=== PATIENT | female | born 1975 | race American Indian/Alaskan Native ===

== ENCOUNTER 2016-04-09 16:33 | Emergency (ER) | payer MEDICAID ==
[2016-04-09 16:50] VITALS: BP 113/69
--- NOTE | 2016-04-09 20:13 | Emergency Department Report ---
- General Chief Complaint: Upper Respiratory Infection Stated Complaint: CHEST PAIN/14WKS Time Seen by Provider: 04/09/16 19:40 Source: patient Mode of arrival: Ambulatory Limitations: No Limitations - History of Present Illness Initial Comments: 40-year-old female past medical history none presents with complaint of 3 days of cough runny nose sore throat and body aches. States cough is dry. Patient states she works with multiple sick contacts with similar symptoms. Patient states she has upper airway congestion denies any nausea vomiting no recent travel, able to tolerate by mouth without any difficulty. Patient states she is approximately 14 weeks . Company by . Patient is awake alert and oriented 3 coughing but not in acute distress otherwise. Patient denies any palpitations chest pain or significant shortness of breath only feels slightly short of breath when she is coughing. States she had subjective fever at home yesterday. MD Complaint: cough, rhinorrhea, nasal congestion Onset/Timin -: days(s) Severity: mild Improves With: nothing Worsens With: nothing Context: sick contacts Associated Symptoms: fever, rhinorrhea, nasal congestion, cough - Related Data Previous Rx's Medication Instructions Recorded Last Taken Type HYDROcodone/APAP 5-325 [[place] 1 - 2 each PO Q6HR PRN #14 tablet 11/17/15 Unknown Rx 5/325] ALBUTEROL Inhaler [ProAir HFA 2 puff IH QID PRN #1 inhalation 04/09/16 Unknown Rx Inhaler] Acetaminophen [Acetaminophen TAB] 500 mg PO Q6HR PRN #30 tablet 04/09/16 Unknown Rx Azithromycin [Zithromax Z-CHLOE] 250 mg PO QDAY #6 tablet 04/09/16 Unknown Rx Oseltamivir [Tamiflu] 75 mg PO BID #10 cap 04/09/16 Unknown Rx guaiFENesin DM [Robitussin Dm] 10 ml PO Q6HR PRN #1 bottle 04/09/16 Unknown Rx Allergies Allergy/AdvReac Type Severity Reaction Status Date / Time No Known Allergies Allergy Verified 11/16/15 03:10 ED Review of Systems ROS: Stated complaint: CHEST PAIN/14WKS Other details as noted in HPI ED Past Medical Hx - Past Medical History Hx Kidney Stones: Yes - Surgical History Past Surgical History?: No - Social History Smoking Status: Never Smoker Substance Use Type: None - Medications Home Medications: Home Medications Medication Instructions Recorded Confirmed Last Taken Type HYDROcodone/APAP 5-325 [[place] 1 - 2 each PO Q6HR PRN #14 tablet 11/17/15 Unknown Rx 5/325] ALBUTEROL Inhaler [ProAir HFA 2 puff IH QID PRN #1 inhalation 04/09/16 Unknown Rx Inhaler] Acetaminophen [Acetaminophen TAB] 500 mg PO Q6HR PRN #30 tablet 04/09/16 Unknown Rx Azithromycin [Zithromax Z-CHLOE] 250 mg PO QDAY #6 tablet 04/09/16 Unknown Rx Oseltamivir [Tamiflu] 75 mg PO BID #10 cap 04/09/16 Unknown Rx guaiFENesin DM [Robitussin Dm] 10 ml PO Q6HR PRN #1 bottle 04/09/16 Unknown Rx ED Physical Exam - General Limitations: No Limitations General appearance: alert, in no apparent distress - Head Head exam: Present: atraumatic, normocephalic - Eye Eye exam: Present: normal appearance, PERRL, EOMI - ENT ENT exam: Present: mucous membranes moist - Neck Neck exam: Present: normal inspection - Respiratory Respiratory exam: Present: normal lung sounds bilaterally. Absent: respiratory distress - Cardiovascular Cardiovascular Exam: Present: regular rate, normal rhythm. Absent: systolic murmur, diastolic murmur, rubs, gallop - GI/Abdominal GI/Abdominal exam: Present: soft, normal bowel sounds - Extremities Exam Extremities exam: Present: normal inspection - Back Exam Back exam: Present: normal inspection - Neurological Exam Neurological exam: Present: alert, oriented X3 - Psychiatric Psychiatric exam: Present: normal affect, normal mood - Skin Skin exam: Present: warm, dry, intact, normal color. Absent: rash ED Course Vital Signs 04/09/16 16:45 Temperature 98.5 F Pulse Rate 97 H Respiratory 16 Rate Blood Pressure 113/69 O2 Sat by Pulse 100 Oximetry ED Medical Decision Making - Medical Decision Making A/P: Flulike illness, cold symptoms, URI 1-as patient is currently approximately 14 weeks with flulike symptoms we'll treat empirically with Tamiflu as per CDC guidelines and recommendations https://www.cdc.gov/flu/antivirals/whatyoushould.htm 2-with Robitussin and DM is safe to use during we'll prescribe, albuterol inhaler, extra strength Tylenol when necessary 3-follow up with primary care doctor 4-patient nontoxic appearing able tolerate by mouth temperature 99.9 Fahrenheit oral, heart rate 79 Critical care attestation.: If time is entered above; I have spent that time in minutes in the direct care of this critically ill patient, excluding procedure time. ED Disposition Clinical Impression: Flu-like symptoms Upper respiratory infection Qualifiers: URI type: unspecified URI Qualified Code(s): J06.9 - Acute upper respiratory infection, unspecified Disposition: DISCHARGED TO HOME OR SELFCARE Is pt being admited?: No Does the pt Need Aspirin: No Condition: Stable Instructions: Upper Respiratory Infection (ED), Cold Symptoms (ED) Prescriptions: Acetaminophen [Acetaminophen TAB] 500 mg PO Q6HR PRN #30 tablet PRN Reason: Sore Throat ALBUTEROL Inhaler [ProAir HFA Inhaler] 2 puff IH QID PRN #1 inhalation PRN Reason: Shortness Of Breath Azithromycin [Zithromax Z-CHLOE] 250 mg PO QDAY #6 tablet guaiFENesin DM [Robitussin Dm] 10 ml PO Q6HR PRN #1 bottle PRN Reason: Cough Oseltamivir [Tamiflu] 75 mg PO BID #10 cap Referrals: CRICKET BECK MD [Primary Care Provider] - 3-5 Days JOHN CURIEL MD [Staff Physician] - 3-5 Days Forms: Accompanied Note, Work/School Release Form(ED) Time of Disposition: 20:19
== END 2016-04-09 20:40 | disposition home or self-care (01) ==
LOC: ED 16:33
DX: O99.511 Diseases of the respiratory system complicating pregnancy, first trimester (principal); J06.9 Acute upper respiratory infection, unspecified; Z3A.14 14 weeks gestation of pregnancy
CPT/HCPCS: 87400; 99282

== ENCOUNTER 2017-03-16 11:45 | Emergency (ER) | payer MEDICAID ==
[2017-03-16] MEDS ORDERED: NORCO 5/325 PO ONE (12:48)
[2017-03-16] MEDS ORDERED: NACL 0.9% 1000 ML 1,000 ML IV ONE (12:48)
[2017-03-16] MEDS ORDERED: ZOFRAN ODT PO ONE (12:49)
[2017-03-16 13:12] LABS: Basophils % (Auto) 0.6 % (0.0-1.8); Eosinophils # (Auto) 0.1 K/mm3 (0.0-0.4); Eosinophils % (Auto) 2.3 % (0.0-4.3); Hematocrit 38.3 % (30.3-42.9); Hemoglobin 12.5 gm/dl (10.1-14.3); Lymphocytes # (Auto) 1.5 K/mm3 (1.2-5.4); Lymphocytes % (Auto) 33.5 % (13.4-35.0); Mean Corpuscular HGB Conc 33 % (30-34); Mean Corpuscular Hemoglobin 30 pg (28-32); Mean Corpuscular Volume 92 fl (79-97); Monocytes # (Auto) 0.3 K/mm3 (0.0-0.8); Monocytes % (Auto) 5.8 % (0.0-7.3); Platelet Count 321 K/mm3 (140-440); Red Blood Count 4.17 M/mm3 (3.65-5.03); Red Cell Distribution Width 15.1 % (13.2-15.2)
[2017-03-16 13:21] LABS: HCG Qualitative,Urine Negative (Negative)
[2017-03-16 13:22] LABS: Bilirubin,Urine NEG (Negative); Blood,Urine LG (Negative); Color,Urine Yellow (Yellow); Mucus,Urine FEW /HPF; Nitrite,Urine NEG (Negative); Protein,Urine <15 mg/dL mg/dL (Negative); Urobilinogen,Urine < 2.0 mg/dL (<2.0)
[2017-03-16 13:23] LABS: RBC,Urine > 182.0 /HPF (0.0-6.0)
[2017-03-16 13:33] LABS: BUN/Creatinine Ratio 13; Blood Urea Nitrogen 9 mg/dL (7-17); Hemolysis Index 7
--- NOTE | 2017-03-16 13:43 | Emergency Department Report ---
ED Back Pain/Injury HPI - General Chief Complaint: Back Pain/Injury Stated Complaint: BACK PAIN Time Seen by Provider: 03/16/17 12:55 Source: patient Limitations: No Limitations - History of Present Illness Initial Comments: 41-year-old female past medical history pyelonephritis, UTI, obesity, hypertension presents with complaint of 3 weeks of persistent flank pain bilaterally slightly worse on left and right with some associated increased urinary frequency. Patient states that she was given a prescription for Macrobid by her primary care physician within the last week but her symptoms are not improving. Patient denies fevers chills nausea or vomiting. Does complain of slightly abnormal smelling urine and slight increased urinary frequency from baseline. Patient is on day 5 of 7 of Macrobid. Patient is awake alert and oriented 3 accompanied by family member at bedside. Denies chest pain palpitations shortness of breath. Fully lucid and nontoxic appearing. States pain is currently 7 out of 10 slightly worsening left flank. Denies any hematuria. Patient is currently on menstrual period began this week. MD Complaint: back pain Onset/Timin -: week(s) Similar Symptoms Previously: Yes Severity scale (0 -10): 6 Quality: sharp, aching Consistency: intermittent Treatments Prior to Arrival: other medications (macrobid) - Related Data Previous Rx's Medication Instructions Recorded Last Taken Type HYDROcodone/APAP 5-325 [[place] 1 - 2 each PO Q6HR PRN #14 tablet 11/17/15 Unknown Rx 5/325] ALBUTEROL Inhaler [ProAir HFA 2 puff IH QID PRN #1 inhalation 04/09/16 Unknown Rx Inhaler] Acetaminophen [Acetaminophen TAB] 500 mg PO Q6HR PRN #30 tablet 04/09/16 Unknown Rx Azithromycin [Zithromax Z-CHLOE] 250 mg PO QDAY #6 tablet 04/09/16 Unknown Rx Oseltamivir [Tamiflu] 75 mg PO BID #10 cap 04/09/16 Unknown Rx guaiFENesin DM [Robitussin Dm] 10 ml PO Q6HR PRN #1 bottle 04/09/16 Unknown Rx Acetaminophen/Codeine [Tylenol 1 tab PO Q6H PRN #12 tab 03/16/17 Unknown Rx /Codeine # 3 tab] Phenazopyridine [Pyridium] 200 mg PO TID #6 tab 03/16/17 Unknown Rx Sulfamethoxazole/Trimethoprim 1 each PO BID #20 tablet 03/16/17 Unknown Rx [Bactrim DS TAB] Allergies Allergy/AdvReac Type Severity Reaction Status Date / Time No Known Allergies Allergy Verified 03/16/17 11:49 ED Review of Systems ROS: Stated complaint: BACK PAIN Other details as noted in HPI Constitutional: denies: chills, fever Eyes: denies: eye pain, eye discharge, vision change ENT: denies: ear pain, throat pain Respiratory: denies: cough, shortness of breath, wheezing Cardiovascular: denies: chest pain, palpitations Endocrine: no symptoms reported Gastrointestinal: denies: abdominal pain, nausea, diarrhea Genitourinary: urgency, dysuria, frequency. denies: discharge Musculoskeletal: back pain (b/l flank pain). denies: joint swelling, arthralgia Skin: denies: rash, lesions Neurological: denies: headache, weakness, paresthesias Psychiatric: denies: anxiety, depression Hematological/Lymphatic: denies: easy bleeding, easy bruising ED Past Medical Hx - Past Medical History Hx Hypertension: Yes Hx Kidney Stones: Yes - Surgical History Additional Surgical History: C/S - Social History Smoking Status: Never Smoker Substance Use Type: None - Medications Home Medications: Home Medications Medication Instructions Recorded Confirmed Last Taken Type HYDROcodone/APAP 5-325 [[place] 1 - 2 each PO Q6HR PRN #14 tablet 11/17/15 Unknown Rx 5/325] ALBUTEROL Inhaler [ProAir HFA 2 puff IH QID PRN #1 inhalation 04/09/16 Unknown Rx Inhaler] Acetaminophen [Acetaminophen TAB] 500 mg PO Q6HR PRN #30 tablet 04/09/16 Unknown Rx Azithromycin [Zithromax Z-CHLOE] 250 mg PO QDAY #6 tablet 04/09/16 Unknown Rx Oseltamivir [Tamiflu] 75 mg PO BID #10 cap 04/09/16 Unknown Rx guaiFENesin DM [Robitussin Dm] 10 ml PO Q6HR PRN #1 bottle 04/09/16 Unknown Rx Acetaminophen/Codeine [Tylenol 1 tab PO Q6H PRN #12 tab 03/16/17 Unknown Rx /Codeine # 3 tab] Phenazopyridine [Pyridium] 200 mg PO TID #6 tab 03/16/17 Unknown Rx Sulfamethoxazole/Trimethoprim 1 each PO BID #20 tablet 03/16/17 Unknown Rx [Bactrim DS TAB] ED Physical Exam - General Limitations: No Limitations General appearance: alert, in no apparent distress - Head Head exam: Present: atraumatic, normocephalic - Eye Eye exam: Present: normal appearance, PERRL, EOMI - ENT ENT exam: Present: mucous membranes moist - Neck Neck exam: Present: normal inspection - Respiratory Respiratory exam: Present: normal lung sounds bilaterally. Absent: respiratory distress - Cardiovascular Cardiovascular Exam: Present: regular rate, normal rhythm. Absent: systolic murmur, diastolic murmur, rubs, gallop - GI/Abdominal GI/Abdominal exam: Present: soft, normal bowel sounds - Extremities Exam Extremities exam: Present: normal inspection - Back Exam Back exam: Present: normal inspection, CVA tenderness (L) (patient does have some left-sided flank tenderness on deep percussion) - Neurological Exam Neurological exam: Present: alert, oriented X3, CN II-XII intact, normal gait - Psychiatric Psychiatric exam: Present: normal affect, normal mood - Skin Skin exam: Present: warm, dry, intact, normal color. Absent: rash ED Course Vital Signs 03/16/17 11:49 Temperature 98.9 F Pulse Rate 90 Respiratory 20 Rate Blood Pressure 128/88 O2 Sat by Pulse 100 Oximetry ED Medical Decision Making - Lab Data Result diagrams: 03/16/17 12:57 03/16/17 12:57 - Medical Decision Making A/P: Possible early pyelonephritis, flank pain, suspected renal colic 1-before I could complete workup patient stated that she had to leave the hospital. I advised her that she could potentially have an obstructing stone or kidney inflammation that I'm trying to determine via result of CAT scan. Patient stated that she must leave. Was awake alert and oriented 3 during this discussion with family member at bedside. Patient signed out AGAINST MEDICAL ADVICE despite my warnings of potential infected kidney stone versus pyelonephritis and possibility of becoming septic without fully evaluated flank pain. 2-initial urinalysis is unremarkable however based on patient's history of pyelonephritis failure of treatment with Macrobid and clinical symptoms I will treat her empirically with Bactrim for suspected pyelonephritis. I advised patient to follow-up with her primary care doctor or to return to the ED as soon as possible for reevaluation. Patient stated she understood my instructions and will follow up as soon as possible. 3-patient's vital signs were stable before she left the ED and tolerating by mouth fluid and food without difficulty. urine culture sent Critical care attestation.: If time is entered above; I have spent that time in minutes in the direct care of this critically ill patient, excluding procedure time. ED Disposition Clinical Impression: Flank pain, Left against medical advice, Suspected urinary tract infection Disposition: LEFT AGAINST MED ADVICE Is pt being admited?: No Does the pt Need Aspirin: No Condition: Stable Instructions: Urinary Tract Infection in Women (ED), Flank Pain (ED) Prescriptions: RX: Acetaminophen/Codeine [Tylenol /Codeine # 3 tab] 1 tab PO Q6H PRN #12 tab PRN Reason: Pain Phenazopyridine [Pyridium] 200 mg PO TID #6 tab Sulfamethoxazole/Trimethoprim [Bactrim DS TAB] 1 each PO BID #20 tablet Referrals: LAINA HENRIQUEZ MD [Staff Physician] - 3-5 Days [facility] [Provider Group] - 3-5 Days Forms: AMA Form, Accompanied Note, Work/School Release Form(ED) Time of Disposition: 16:24
[2017-03-16 16:48] VITALS: BP 121/75
--- NOTE | 2017-03-16 17:55 | Cat Scan Report ---
FINAL REPORT PROCEDURE: CT ABDOMEN PELVIS WO CON TECHNIQUE: Computerized axial tomography of the abdomen and pelvis was performed without intravenous contrast. This study is performed without intravascular contrast material and its sensitivity for abdominal and pelvic pathology, including neoplasms, inflammation, abscess, free fluid, thrombosis, arterial dissection and infarction, is reduced compared with a contrast enhanced study. DLP 2017.19 mGy-cm. HISTORY: Left-sided flank pain. COMPARISON: No prior studies are available for comparison. FINDINGS: Visualized lower thorax: No significant abnormality. Liver: Normal size and attenuation. Spleen: Normal size and attenuation. Gallbladder and biliary system: Normal. Pancreas: Normal. Adrenals: Normal. Kidneys: 11 mm low-attenuation lesion in the midpole of the left kidney. Mild overlying scarring. 2.5 mm calculus near expected location the left mid ureter at the L3 level. There is no left hydronephrosis or hydroureter. Possible punctate left renal calculi. A few 2 mm right renal calculi. GI tract: Normal caliber air-filled appendix. Lymph nodes and mesentery: Normal. Vasculature: Normal. Bladder: Normal. Reproductive organs: Normal. Peritoneum: No free fluid. Musculoskeletal structures: Slight L4-5 disc bulges. Small multilevel osteophytes. Moderate sclerosis about the bilateral sacroiliac joints. Other: Fat filled umbilical hernia. IMPRESSION: 2.5 mm calcification about the expected course of the left mid ureter, felt to be vascular and outside the ureter, although difficult to completely exclude small ureteral calculus. Consider further evaluation including CT urogram if there is continued clinical concern. 2 mm right and possible punctate left renal calculi. No CT evidence of obstruction. Low-attenuation lesion in the midpole of the left kidney, likely cyst. Overlying scarring. Consider confirmation with ultrasound if there is continued clinical concern. Moderate sclerosis of the bilateral sacroiliac joints, consider osteitis condensans ilii or sacroiliitis. Fat filled umbilical hernia.
== END 2017-03-16 16:46 | disposition left against medical advice (07) ==
LOC: ED 11:45
DX: R10.9 Unspecified abdominal pain (principal); I10 Essential (primary) hypertension
CPT/HCPCS: 36415; 74176; 80048; 81001; 81025; 82140; 82550; 85025; 87086; Q0162

== ENCOUNTER 2017-07-24 19:38 | Emergency (ER) | payer MEDICAID, OTHER ==
[2017-07-24] MEDS ORDERED: ASPIRIN PO ONE (20:13)
[2017-07-24 20:56] LABS: Basophils # (Auto) 0.1 K/mm3 (0.0-0.1); Basophils % (Auto) 1.6 % (0.0-1.8); Eosinophils # (Auto) 0.1 K/mm3 (0.0-0.4); Eosinophils % (Auto) 1.3 % (0.0-4.3); Hematocrit 33.5 % (30.3-42.9); Hemoglobin 11.1 gm/dl (10.1-14.3); Lymphocytes # (Auto) 2.4 K/mm3 (1.2-5.4); Lymphocytes % (Auto) 35.5 % (13.4-35.0); Mean Corpuscular HGB Conc 33 % (30-34); Mean Corpuscular Hemoglobin 29 pg (28-32); Mean Corpuscular Volume 88 fl (79-97); Monocytes # (Auto) 0.3 K/mm3 (0.0-0.8); Monocytes % (Auto) 3.8 % (0.0-7.3); Platelet Count 344 K/mm3 (140-440); Red Blood Count 3.81 M/mm3 (3.65-5.03); Red Cell Distribution Width 15.3 % (13.2-15.2)
[2017-07-24 21:18] LABS: BUN/Creatinine Ratio 17; Blood Urea Nitrogen 10 mg/dL (7-17); Calcium 8.9 mg/dL (8.4-10.2); Hemolysis Index 4
--- NOTE | 2017-07-25 03:37 | Emergency Department Report ---
ED Chest Pain HPI - General Chief Complaint: Chest Pain Stated Complaint: CHEST PAIN Time Seen by Provider: 07/25/17 03:04 Source: patient Mode of arrival: Ambulatory Limitations: No Limitations - History of Present Illness Initial Comments: Sharp chest pain to left chest began which the shower radiated to the right shoulder came in for evaluation of pain from the right shoulder through the chest worse with movement off from for 2 days denies exertional chest pain denies calf pain or swelling denies risk factors for DVT PE denies shortness of breath perc negatives nonexertional chest pain here for evaluation no tearing pain to the back MD Complaint: chest pain -: Gradual, days(s) Onset: during rest Pain Location: left chest Pain Radiation: RUE Severity: mild, moderate Severity scale (0 -10): 5 Quality: sharp Improves With: nothing Worsens With: nothing, movement Other Symptoms: denies: cough, fever, syncope, rash, acid taste in mouth, leg swelling, palpitations, burping - Related Data On Oral Contraceptives: No Previous Rx's Medication Instructions Recorded Last Taken Type HYDROcodone/APAP 5-325 [[place] 1 - 2 each PO Q6HR PRN #14 tablet 11/17/15 Unknown Rx 5/325] ALBUTEROL Inhaler [ProAir HFA 2 puff IH QID PRN #1 inhalation 04/09/16 Unknown Rx Inhaler] Acetaminophen [Acetaminophen TAB] 500 mg PO Q6HR PRN #30 tablet 04/09/16 Unknown Rx Azithromycin [Zithromax Z-CHLOE] 250 mg PO QDAY #6 tablet 04/09/16 Unknown Rx Oseltamivir [Tamiflu] 75 mg PO BID #10 cap 04/09/16 Unknown Rx guaiFENesin DM [Robitussin Dm] 10 ml PO Q6HR PRN #1 bottle 04/09/16 Unknown Rx Acetaminophen/Codeine [Tylenol 1 tab PO Q6H PRN #12 tab 03/16/17 Unknown Rx /Codeine # 3 tab] Phenazopyridine [Pyridium] 200 mg PO TID #6 tab 03/16/17 Unknown Rx Sulfamethoxazole/Trimethoprim 1 each PO BID #20 tablet 03/16/17 Unknown Rx [Bactrim DS TAB] Allergies Allergy/AdvReac Type Severity Reaction Status Date / Time No Known Allergies Allergy Verified 03/16/17 11:49 Heart Score - HEART Score History: Slightly suspicious EKG: Non-specific Age: < 45 Risk factors: 1-2 risk factors Troponin: < normal limit HEART Score: 2 ED Review of Systems ROS: Stated complaint: CHEST PAIN Other details as noted in HPI Comment: All other systems reviewed and negative Constitutional: denies: diaphoresis, fever, malaise Eyes: denies: eye discharge, vision change ENT: denies: dental pain, hearing loss, epistaxis Respiratory: denies: shortness of breath, SOB with exertion, SOB at rest, stridor Cardiovascular: chest pain. denies: palpitations, dyspnea on exertion, orthopnea, edema, syncope, paroxysmal nocturnal dyspnea Gastrointestinal: denies: abdominal pain, nausea, vomiting, diarrhea, constipation, hematemesis, melena, hematochezia Neurological: denies: numbness, paresthesias, confusion, abnormal gait, vertigo Psychiatric: denies: anxiety, depression, auditory hallucinations, visual hallucinations, homicidal thoughts ED Past Medical Hx - Past Medical History Previous Medical History?: Yes Hx Hypertension: Yes Hx Kidney Stones: Yes - Surgical History Past Surgical History?: Yes Additional Surgical History: C/S - Social History Smoking Status: Never Smoker Substance Use Type: None - Medications Home Medications: Home Medications Medication Instructions Recorded Confirmed Last Taken Type HYDROcodone/APAP 5-325 [[place] 1 - 2 each PO Q6HR PRN #14 tablet 11/17/15 Unknown Rx 5/325] ALBUTEROL Inhaler [ProAir HFA 2 puff IH QID PRN #1 inhalation 04/09/16 Unknown Rx Inhaler] Acetaminophen [Acetaminophen TAB] 500 mg PO Q6HR PRN #30 tablet 04/09/16 Unknown Rx Azithromycin [Zithromax Z-CHLOE] 250 mg PO QDAY #6 tablet 04/09/16 Unknown Rx Oseltamivir [Tamiflu] 75 mg PO BID #10 cap 04/09/16 Unknown Rx guaiFENesin DM [Robitussin Dm] 10 ml PO Q6HR PRN #1 bottle 04/09/16 Unknown Rx Acetaminophen/Codeine [Tylenol 1 tab PO Q6H PRN #12 tab 03/16/17 Unknown Rx /Codeine # 3 tab] Phenazopyridine [Pyridium] 200 mg PO TID #6 tab 03/16/17 Unknown Rx Sulfamethoxazole/Trimethoprim 1 each PO BID #20 tablet 03/16/17 Unknown Rx [Bactrim DS TAB] ED Physical Exam - General Limitations: No Limitations General appearance: alert, in no apparent distress, anxious - Head Head exam: Present: atraumatic, normocephalic - Eye Eye exam: Present: normal appearance, PERRL, EOMI - ENT ENT exam: Present: normal exam, normal orophraynx - Neck Neck exam: Present: normal inspection. Absent: tenderness, meningismus - Respiratory Respiratory exam: Present: normal lung sounds bilaterally, chest wall tenderness. Absent: respiratory distress, wheezes, rales, rhonchi, stridor, accessory muscle use, decreased breath sounds, prolonged expiratory - Cardiovascular Cardiovascular Exam: Present: regular rate, normal rhythm. Absent: bradycardia , tachycardia, irregular rhythm, normal heart sounds, systolic murmur, diastolic murmur, rubs, gallop - GI/Abdominal GI/Abdominal exam: Present: soft. Absent: distended, tenderness, guarding, rebound, rigid, mass, pulsatile mass - Extremities Exam Extremities exam: Present: normal inspection, normal capillary refill. Absent: joint swelling, calf tenderness - Back Exam Back exam: Present: normal inspection. Absent: tenderness, CVA tenderness (R), CVA tenderness (L), muscle spasm, paraspinal tenderness, vertebral tenderness - Neurological Exam Neurological exam: Present: alert, oriented X3, CN II-XII intact. Absent: motor sensory deficit - Psychiatric Psychiatric exam: Present: anxious - Skin Skin exam: Present: warm. Absent: cyanosis, diaphoretic, erythema, urticaria, vesicles ED Course Vital Signs 07/24/17 07/24/17 07/25/17 20:10 20:13 02:02 Temperature 98.9 F Pulse Rate 105 H 95 H Respiratory 17 Rate Blood Pressure 131/85 Blood Pressure [Left] O2 Sat by Pulse 99 97 Oximetry 07/25/17 07/25/17 02:14 02:20 Temperature 98.3 F Pulse Rate 89 Respiratory 12 12 Rate Blood Pressure Blood Pressure 116/63 [Left] O2 Sat by Pulse 100 100 Oximetry ROSA score - Rosa Score Age > 65: (0) No Aspirin use within the Past 7 Days: (0) No 3 or more CAD Risk Factors: (0) No 2 or more Angina events in past 24 hrs: (0) No Known CAD with more than 50% Stenosis: (0) No Elevated Cardiac Markers: (0) No ST Deviation Greater than 0.5mm: (0) No ROSA Score: 0 ED Medical Decision Making - Lab Data Result diagrams: 07/24/17 20:33 07/24/17 20:33 - EKG Data -: EKG Interpreted by Me EKG shows normal: sinus rhythm - Medical Decision Making Heart scores is 2, perc score is negative patient does have atypical symptoms negative troponin 2 she did elect refused further evaluation in the ED wants blood work came back I did discuss with her the nature and need for testing of and chest x-ray as well as BNP given her nature of hypertension she is refusing that at this time she says of the blood work is fine just won't go previously noted she did have 2 negative troponins, she is alert and oriented 3 not intoxicated with capacity and is refusing further evaluation of chest pain at this time. She was informed of risk and verbalized understanding of ACS cardiac arrest and and disability she says she'll follow up with regular doctor and return if worse Critical care attestation.: If time is entered above; I have spent that time in minutes in the direct care of this critically ill patient, excluding procedure time. ED Disposition Clinical Impression: Atypical chest pain Disposition: [id number]-07 LEFT AGAINST MED ADVICE Is pt being admited?: No Condition: Stable Instructions: Chest Pain (ED) Referrals: SINCERE YOO MD [Primary Care Provider] - 3-5 Days Forms: AMA Form Time of Disposition: 04:02
[2017-07-25 03:58] VITALS: BP 110/66
== END 2017-07-25 03:58 | disposition left against medical advice (07) ==
LOC: ED 19:38
DX: R07.89 Other chest pain (principal); I10 Essential (primary) hypertension
CPT/HCPCS: 36415; 80048; 83880; 84484; 84703; 85025; 93005; 93010; 99284

== ENCOUNTER 2017-08-30 17:03 | Emergency (ER) | payer MEDICAID ==
[2017-08-30 18:21] LABS: Basophils % (Auto) 0.5 % (0.0-1.8); Eosinophils # (Auto) 0.1 K/mm3 (0.0-0.4); Eosinophils % (Auto) 0.9 % (0.0-4.3); Hematocrit 34.8 % (30.3-42.9); Hemoglobin 11.1 gm/dl (10.1-14.3); Lymphocytes # (Auto) 2.7 K/mm3 (1.2-5.4); Lymphocytes % (Auto) 42.7 % (13.4-35.0); Mean Corpuscular HGB Conc 32 % (30-34); Mean Corpuscular Hemoglobin 28 pg (28-32); Mean Corpuscular Volume 86 fl (79-97); Monocytes # (Auto) 0.3 K/mm3 (0.0-0.8); Monocytes % (Auto) 4.9 % (0.0-7.3); Platelet Count 383 K/mm3 (140-440); Red Blood Count 4.04 M/mm3 (3.65-5.03); Red Cell Distribution Width 15.8 % (13.2-15.2)
[2017-08-30 18:34] LABS: BUN/Creatinine Ratio 17; Blood Urea Nitrogen 10 mg/dL (7-17); Calcium 9.5 mg/dL (8.4-10.2); Hemolysis Index 0
--- NOTE | 2017-08-30 20:57 | XRay Report ---
FINAL REPORT PROCEDURE: XR CHEST ROUTINE 2V TECHNIQUE: PA and lateral chest radiographs were obtained. CPT 90212 HISTORY: Shortness of breath COMPARISON: No prior studies are available for comparison. FINDINGS: Heart: Normal. Mediastinum/Vessels: Normal. Lungs/Pleural space: Normal. Bony thorax: No acute osseous abnormality. Other: IMPRESSION: Normal examination.
--- NOTE | 2017-08-30 21:15 | Emergency Department Report ---
HPI - General Chief Complaint: Dyspnea/Respdistress Time Seen by Provider: 08/30/17 20:21 - HPI HPI: 42-year-old -[place] female who presents to the emergency department with a complaint of a 2 day history of some shortness of breath with a dry cough. The patient also says that she had some bad acid reflux and 5 days ago that caused some midsternal discomfort that was a bad burning sensation but she says that has improved after she started taking Zantac. The patient has a history of bilateral lower external swelling but she says "my legs are always swollen." She has a past medical history of hypertension, borderline diabetes and kidney stones. Her primary care doctor is Dr. Dejesus. No recent travel, immobility, recent surgery, or sick contacts at home. She denies any fever, back pain, nausea, vomiting or diaphoresis. ED Past Medical Hx - Past Medical History Previous Medical History?: Yes Hx Hypertension: Yes Hx Kidney Stones: Yes - Surgical History Past Surgical History?: Yes Additional Surgical History: C/S - Social History Smoking Status: Never Smoker Substance Use Type: Alcohol - Medications Home Medications: Home Medications Medication Instructions Recorded Confirmed Last Taken Type HYDROcodone/APAP 5-325 [[place] 1 - 2 each PO Q6HR PRN #14 tablet 11/17/15 Unknown Rx 5/325] Acetaminophen [Acetaminophen TAB] 500 mg PO Q6HR PRN #30 tablet 04/09/16 Unknown Rx Azithromycin [Zithromax Z-CHLOE] 250 mg PO QDAY #6 tablet 04/09/16 Unknown Rx Oseltamivir [Tamiflu] 75 mg PO BID #10 cap 04/09/16 Unknown Rx guaiFENesin DM [Robitussin Dm] 10 ml PO Q6HR PRN #1 bottle 04/09/16 Unknown Rx Acetaminophen/Codeine [Tylenol 1 tab PO Q6H PRN #12 tab 03/16/17 Unknown Rx /Codeine # 3 tab] Phenazopyridine [Pyridium] 200 mg PO TID #6 tab 03/16/17 Unknown Rx Sulfamethoxazole/Trimethoprim 1 each PO BID #20 tablet 03/16/17 Unknown Rx [Bactrim DS TAB] ALBUTEROL Inhaler [ProAir HFA 2 puff IH QID PRN #1 inhalation 08/30/17 Unknown Rx Inhaler] Benzonatate [Tessalon Perles] 100 mg PO Q8HR PRN #20 capsule 08/30/17 Unknown Rx predniSONE [Deltasone] 20 mg PO QDAY #3 tab 08/30/17 Unknown Rx ED Review of Systems ROS: Stated complaint: SOB Other details as noted in HPI Comment: All other systems reviewed and negative Constitutional: denies: chills, fever Eyes: denies: eye pain, eye discharge, vision change ENT: denies: ear pain, throat pain Respiratory: cough, shortness of breath Cardiovascular: edema (chronic). denies: palpitations Gastrointestinal: denies: abdominal pain, nausea, diarrhea Genitourinary: denies: urgency, dysuria, discharge Musculoskeletal: denies: back pain, joint swelling, arthralgia Skin: denies: rash, lesions Neurological: denies: headache, weakness, paresthesias Physical Exam - Physical Exam Vital Signs: Vital Signs 08/30/17 08/30/17 08/30/17 17:07 20:20 20:21 Temperature 98.7 F 99.0 F Pulse Rate 95 H 84 Respiratory 18 18 18 Rate Blood Pressure 118/73 Blood Pressure 138/78 [Right] O2 Sat by Pulse 100 98 Oximetry ED Course Vital Signs 08/30/17 08/30/17 08/30/17 17:07 20:20 20:21 Temperature 98.7 F 99.0 F Pulse Rate 95 H 84 Respiratory 18 18 18 Rate Blood Pressure 118/73 Blood Pressure 138/78 [Right] O2 Sat by Pulse 100 98 Oximetry ED Medical Decision Making - Lab Data Result diagrams: 08/30/17 17:50 08/30/17 17:50 - EKG Data -: EKG Interpreted by Me EKG shows normal: sinus rhythm, axis (left axis deviation), intervals, QRS complexes, ST-T waves (flattened T waves and isolated T-wave inversion in lead 3 ) Rate: normal - EKG Data When compared to previous EKG there are: no significant change Interpretation: unchanged when compared t (07/24/17) Critical care attestation.: If time is entered above; I have spent that time in minutes in the direct care of this critically ill patient, excluding procedure time. ED Disposition Clinical Impression: Bronchospasm Upper respiratory infection Qualifiers: URI type: unspecified URI Qualified Code(s): J06.9 - Acute upper respiratory infection, unspecified Disposition: DC-01 TO HOME OR SELFCARE Is pt being admited?: No Condition: Stable Instructions: Bronchospasm (ED), Upper Respiratory Infection (ED) Additional Instructions: Please follow-up with your primary care physician in the next few days. Return to the emergency Department with any worsening of her symptoms or any acute distress. Prescriptions: ALBUTEROL Inhaler [ProAir HFA Inhaler] 2 puff IH QID PRN #1 inhalation PRN Reason: Shortness Of Breath Benzonatate [Tessalon Perles] 100 mg PO Q8HR PRN #20 capsule PRN Reason: Cough predniSONE [Deltasone] 20 mg PO QDAY #3 tab Referrals: SINCERE YOO MD [Primary Care Provider] - [facility] Time of Disposition: 22:33
[2017-08-30] MEDS ORDERED: DUONEB *Not for PRN Use IH ONE (21:19)
[2017-08-30] MEDS ORDERED: TESSALON PERLES PO ONE (21:19)
[2017-08-30 21:25] LABS: INR 0.9 (0.87-1.13)
[2017-08-30 21:26] LABS: Partial Thromboplastin Time 31.5 Sec. (24.2-36.6)
[2017-08-30 22:40] VITALS: BP 115/62
== END 2017-08-30 22:45 | disposition home or self-care (01) ==
LOC: ED 17:03
DX: J98.01 Acute bronchospasm (principal); J06.9 Acute upper respiratory infection, unspecified; I10 Essential (primary) hypertension; Z87.442 Personal history of urinary calculi; K21.9 Gastro-esophageal reflux disease without esophagitis
CPT/HCPCS: 36415; 71046; 80048; 83880; 84484; 84703; 85025; 85610; 85730; 93005; 93010

== ENCOUNTER 2017-11-21 17:21 | Emergency (ER) | payer MEDICAID ==
[2017-11-21 17:35] VITALS: BP 103/63
[2017-11-21 19:45] LABS: Bilirubin,Urine NEG (Negative); Blood,Urine LG (Negative); Color,Urine Yellow (Yellow); Mucus,Urine 1+ /HPF; Urobilinogen,Urine < 2.0 mg/dL (<2.0)
--- NOTE | 2017-11-21 22:14 | Ultrasound Report ---
FINAL REPORT PROCEDURE: US OB < = 14 WEEKS FETUS TECHNIQUE: Real-time transabdominal sonography of the uterus, placenta, amniotic fluid, adnexa, and fetus was performed with image documentation. Measurements were obtained to determine age/size. M-mode Doppler was used to document heartbeat. CPT 32243 HISTORY: vaginal bleed with pregancy COMPARISON: No prior studies are available for comparison. FINDINGS: A intrauterine single fluid-filled sac is noted measuring 5.3 millimeters corresponding to 5 weeks and 2 days of gestational age. A pole is not visualized. Uterus measures 11 x 7 x 8 centimeters with an endometrial thickness of 9 millimeters. Right ovary is not visualized. Left ovary measures 2.9 x 1.4 x 2.5 centimeters and appears unremarkable. There is no free fluid in the pelvic cavity. IMPRESSION: A single fluid-filled intrauterine sac may represent a very early viable gestation versus early gestation failure. It corresponds to 5 weeks and 2 days of gestational age. There is no pole. Follow-up studies and clinical correlation are recommended.
--- NOTE | 2017-11-21 22:17 | Ultrasound Report ---
FINAL REPORT PROCEDURE: US OB TRANSVAGINAL TECHNIQUE: Real-time transvaginal sonography of the uterus, placenta, amniotic fluid, adnexa, and fetus was performed with image documentation. Measurements were obtained to determine age/size. M-mode Doppler was used to document heartbeat. CPT 96595 HISTORY: vaginal bleed with pregancy COMPARISON: No prior studies are available for comparison. FINDINGS: This study is limited due to patient's inability to tolerate the transvaginal exam. A intrauterine single fluid-filled sac is noted measuring 5.3 millimeters corresponding to 5 weeks and 2 days of gestational age. A pole is not visualized. Uterus measures 11 x 7 x 8 centimeters with an endometrial thickness of 9 millimeters. Right ovary is not visualized. Left ovary measures 2.9 x 1.4 x 2.5 centimeters and appears unremarkable. There is no free fluid in the pelvic cavity. IMPRESSION: A single fluid-filled intrauterine sac may represent a very early viable gestation versus early gestation failure. It corresponds to 5 weeks and 2 days of gestational age. There is no pole as visualized transabdominally. Transvaginally the patient is unable to tolerate the exam.. Follow-up studies and clinical correlation are recommended.
== END 2017-11-21 23:22 | disposition left against medical advice (07) ==
LOC: ED 17:21
DX: O03.9 Complete or unspecified spontaneous abortion without complication (principal); Z3A.01 Less than 8 weeks gestation of pregnancy; Z53.21 Procedure and treatment not carried out due to patient leaving prior to being seen by health care provider
CPT/HCPCS: 36415; 76801; 76817; 81001; 84702